=== PATIENT | male | born 1975 | race Caucasian/White ===

== ENCOUNTER 2020-03-28 05:40 | Outpatient (CLI) | payer OTHER ==
[2020-03-28 16:32] LABS: #Eosinphils 0.2 thou/uL (0.0-0.7); #Monocytes 0.7 thou/uL (0.11-0.59); #Neutrophils 6.2 thou/uL (1.40-6.50); %Basophils 0.5 % (0.0-1.0); %Lymphocytes 22.1 % (21.0-51.0); %Monocytes 7.8 % (0.0-10.0); %Neutrophils 67.6 % (42.0-75.0); Hemoglobin 15.7 g/dL (14.0-18.0); Mean Corpuscular HGB CONC 32.5 g/dL (32.0-36.0); Mean Corpuscular Hemoglobin 28.9 pg (27.0-31.0); Mean Corpuscular Volume 88.7 fL (78.0-98.0); Mean Platelet Volume 7.8 fL (7.4-10.4); Platelet Count 230 thou/uL (130-400); RBC Distribution Width 12.4 % (11.5-14.5); Red Blood Cell (RBC) Count 5.44 mill/uL (4.70-6.10); White Blood Cell (WBC) Count 9.2 thou/uL (4.8-10.8)
[2020-03-28 17:20] LABS: Anion Gap 16 mmol/L (10-20); BUN (Urea Nitrogen) 16 mg/dL (8.9-20.6); Calc. Creatinine Clearance 0 mL/min (70-130); Calcium 9.1 mg/dL (7.8-10.44); Carbon Dioxide 24 mmol/L (22-29); Chloride 101 mmol/L (98-107); Estimated GFR-MDRD 66; Glucose 89 mg/dL (70-105); Potassium 4.4 mmol/L (3.5-5.1); Sodium 137 mmol/L (136-145)
[2020-03-29 14:41] LABS: SARS-CoV-2 MS2 Positive; SARS-CoV-2 N Gene Negative; SARS-CoV-2 S Gene Negative; SARS-CoV-2 by NAA Not Detected (NotDetected); SARS-CoV-2 orf1ab Negative
== END 2020-03-28 05:41 | disposition home or self-care (01) ==
LOC: LABBT 05:40
PROVIDERS: ATTEND Neurological Surgery
DX: Z01.812 Encounter for preprocedural laboratory examination (principal); Z11.59 Encounter for screening for other viral diseases; M54.12 Radiculopathy, cervical region
CPT/HCPCS: 80048; 85025; 87635; U0003

== ENCOUNTER 2020-04-02 06:45 | Observation (INO) | payer OTHER ==
[2020-03-27 13:33] VITALS: BMI 36.2
[2020-04-02] MEDS ORDERED: Midazolam HCl 2 mg/2 ml Vial ONE (08:18)
[2020-04-02] MEDS ORDERED: Scopolamine 1.5 mg/72 hour Patch ONE (08:18)
[2020-04-02] MEDS ORDERED: Fentanyl 100 MCG/2 ML VIAL ONE ×2 (09:31→11:28)
[2020-04-02] MEDS ORDERED: Dexamethasone 20 MG/5 ML VIAL ONE (10:11)
[2020-04-02] MEDS ORDERED: Ondansetron PF 4 MG/2 ML Vial ONE (10:11)
[2020-04-02] MEDS ORDERED: Lidocaine 1% PF 5 ML VIAL ONE ×2 (10:11)
[2020-04-02] MEDS ORDERED: Rocuronium Bromide 10 MG/ML (10ML VIAL) ONE (10:11)
[2020-04-02] MEDS ORDERED: Glycopyrrolate 0.2 MG/ML 5 ML SYRINGE ONE (10:11)
[2020-04-02] MEDS ORDERED: PROPOFOL 200 MG/20 ML VIAL ONE (10:11)
[2020-04-02] MEDS ORDERED: HYDROmorphone 2 MG/ML VIAL SLOW IVP PRN (10:25)
[2020-04-02] MEDS ORDERED: PACU-Morphine 4MG/ML VIAL SLOW IVP PRN (10:25)
[2020-04-02] MEDS ORDERED: Meperidine HCl/PF 25 MG/ML VIAL SLOW IVP PRN (10:25)
[2020-04-02] MEDS ORDERED: Ondansetron HCl/PF 4 MG/2 ML Vial IVP PRN (10:25)
[2020-04-02] MEDS ORDERED: Morphine Sulfate 2 MG/ML SYRINGE SLOW IVP PRN (10:25)
[2020-04-02] MEDS ORDERED: Promethazine HCl 25 MG/ML VIAL IM PRN ×2 (10:25→11:10)
[2020-04-02] MEDS ORDERED: Promethazine HCl 25 MG/ML VIAL SLOW IVP PRN (10:25)
--- NOTE | 2020-04-02 10:43 | OP ---
DATE OF PROCEDURE: 04/02/2020 CLINICAL STATISTICS MANAGER: Carlos Eduardo. PROCEDURE PERFORMED: Anterior cervical diskectomy, C5-C6 and C6-C7; interbody arthrodesis; intervertebral biomechanical device; local morselized autograft; demineralized bone matrix; anterior titanium instrumentation, C5-C6 and C6-C7. DESCRIPTION OF PROCEDURE: The patient was brought to the operating room and intubated. He was positioned supine with the head in modest extension on a gel-filled donut. An incision was made in the right precervical area and dissected medial to the sternocleidomastoid muscle, identified the anterior cervical spinal, and the level was confirmed by x-ray. We debrided the anterior osteophytes, placed distraction across the disk spaces, and completely decompressed the intervertebral disks at C5-C6 and C6-C7. We decorticated the bony endplates for the purpose of arthrodesis and appropriate-sized intervertebral biomechanical PEEK device was brought into the field, filled with demineralized bone matrix local morselized autograft, and tapped in place securely at C5-C6 and C6-C7. Next, the anterior plate was brought into the field and secured to C5, C6, and C7 using two 14-mm screws at each level. The wound was extensively irrigated. MAC hemostasis was secured. The wound was closed in anatomic layers over drain. Job ID: [id number]
[2020-04-02] MEDS ORDERED: HYDROmorphone 2 MG/ML VIAL ONE (10:44)
[2020-04-02] MEDS ORDERED: tiZANidine HCl 4 MG TAB PO PRN (11:10)
[2020-04-02] MEDS ORDERED: traMADol HCl 50 MG TAB PO PRN ×2 (11:10)
[2020-04-02] MEDS ORDERED: Mag-Al 1200 mg/1200 mg/30 ML UDCUP PO PRN (11:10)
[2020-04-02] MEDS ORDERED: diphenhydrAMINE 50 MG/ML VIAL IVP PRN (11:10)
[2020-04-02] MEDS ORDERED: Promethazine HCl 12.5 MG SUPP PR PRN (11:10)
[2020-04-02] MEDS ORDERED: Morphine 4 MG/ML VIAL SLOW IVP PRN (11:10)
[2020-04-02] MEDS ORDERED: diphenhydrAMINE 25 MG CAP PO PRN (11:10)
[2020-04-02] MEDS ORDERED: Acetaminophen/Codeine 30-300mg Tablet PO PRN ×2 (11:10)
[2020-04-02] MEDS ORDERED: Ondansetron PF 4 MG/2 ML Vial IVP PRN (11:10)
[2020-04-02] MEDS ORDERED: Promethazine 25 MG TAB PO PRN (11:10)
[2020-04-02] MEDS ORDERED: Milk Of Magnesia 30 ML UDCUP PO PRN (11:10)
[2020-04-02] MEDS: Sodium Chloride 0.9% 1,000 ML IV SCH (13:31)
[2020-04-02] MEDS: Morphine 2 MG/ML VIAL SLOW IVP PRN ×2 (14:08→18:28)
[2020-04-02] MEDS: CEFAZOLIN 2 GM in Premix Bag 1 BAG IVPB SCH (18:23)
[2020-04-02] MEDS: tiZANidine HCl 4 MG TAB PO SCH (21:52)
[2020-04-03] MEDS: Sodium Chloride 0.9% 1,000 ML IV SCH (02:27)
[2020-04-03] MEDS: CEFAZOLIN 2 GM in Premix Bag 1 BAG IVPB SCH (02:31)
[2020-04-03] MEDS ORDERED: Tamsulosin HCl 0.4 MG CAP PO SCH (06:00)
[2020-04-03] MEDS ORDERED: Levothyroxine Sodium 100 MCG TAB PO SCH (06:00)
[2020-04-03 07:58] VITALS: BP 138/75; TEMP 98.2
[2020-04-03] MEDS ORDERED: Lisinopril 5 MG TAB PO SCH (09:00)
[2020-04-03] MEDS: tiZANidine HCl 4 MG TAB PO SCH (09:30)
--- NOTE | 2020-04-03 14:00 | DIS ---
DATE OF ADMISSION: 04/02/2020 DATE OF DISCHARGE: 04/03/2020 DISCHARGE SUMMARY: The patient is a 45-year-old male, recently evaluated in our office for progressive neck and arm pain. 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 He underwent C5 to C7 ACDF on 04/02/2020. Following the surgery, he was transitioned to the floor, where his pain has been well controlled with p.o. medications, he is tolerating regular diet, and he is voiding appropriately. He has been ambulating easily in the halls. He did have a MELISSA drain, which had 36 mL out over the first night. On exam this morning, he is awake, alert, in no acute distress. He has free active range of motion of all extremities. No focal motor weakness. He has some mild hoarseness, but he is tolerating a p.o. diet just fine. His incision is clean, dry, intact, soft. There is a small amount of serosanguinous blood in the MELISSA. We will plan to remove the MELISSA and dismiss the patient to home. I have discussed home care and precautions. We will follow up with the patient in 2 weeks. He has been provided with scripts for Tylenol No. 3 and Zanaflex. MEDICAL MALPRACTICE PARALEGAL AWARxE was checked prior to discharge. Job ID: [id number]
== END 2020-04-03 10:50 | disposition home or self-care (01) ==
LOC: SDC 06:45 → 3SE 12:26
PROVIDERS: ADMIT Neurological Surgery; ATTEND Neurological Surgery
PROC: 0RG20A0 Fusion of 2 or more Cervical Vertebral Joints with Interbody Fusion Device, Anterior Approach, Anterior Column, Open Approach (ICD-10-PCS; principal; 2020-04-03)
PROC: 0RG2070 Fusion of 2 or more Cervical Vertebral Joints with Autologous Tissue Substitute, Anterior Approach, Anterior Column, Open Approach (ICD-10-PCS; 2020-04-03)
PROC: 0RT30ZZ Resection of Cervical Vertebral Disc, Open Approach (ICD-10-PCS; 2020-04-03)
DX: M50.122 Cervical disc disorder at C5-C6 level with radiculopathy (principal); Z79.899 Other long term (current) drug therapy; Z88.8 Allergy status to other drugs, medicaments and biological substances
CPT/HCPCS: 76000; 96361; 96365; 96366; 96375; 96376; C1713; C1776; G0378; J0690; J1100; J1170; J2250; J2270; J2405; J2704; J3010; J3490